=== PATIENT | female | born 1945 | race Caucasian/White ===

== ENCOUNTER 2018-10-08 13:21 | Emergency (ER) | payer MEDICARE, OTHER ==
[~2018-10-08] VITALS: Ht 162.6 cm; Wt 74.4 kg
[~2018-10-08 13:21] MED LIST: ASPIR 8181 MG PO; CALCIUM +D3 PO; CO Q-10 PO; ESTRATEST PO; MULTI-VITAMIN1 EACH PO; OCUVITE TABLET1 EAC1 PO; RESTASIS1 EACH TOP; SIMVASTATIN PO; TERBINAFINE HC250 MG PO; VITAMIN B-COMPLEX PO; VITAMIN C PO; VITAMIN D3 PO
--- OUTSIDE RECORDS SUMMARY | 2018-10-08 13:57 | XMS REPORT | Summary of Care ---
Author Author Romy Cardona Unknown Address [place] [facility] Phone Unavailable Care Team Providers Care Quality Assurance Supervisor Trim Name Role Phone KAYLIE CRUZ N.P. Unavailable Unavailable Valeri Avendaño M.A. Unavailable Unavailable KARINE RYAN [place], ZAHRA Arango Unavailable Unavailable KARINE Cheng, ZAHRA Redd Unavailable Unavailable Unavailable Functional Status Name Dates Details Functional status health issues are not documented Status: Name Dates Details Cognitive status health issues are not documented Status: Problems Name Dates Details Laceration Of Head (873.8) Status: Active A Fall Due To Slipping, Tripping, Or Stumbling (E885.9) Status: Active Neck pain (723.1, M54.2) Status: Active Joint pain, hip (719.45, M25.559) Status: Active Abnormal findings on diagnostic imaging of breast (793.89, R92.8) Status: Active Increased urinary frequency (788.41, R35.0) Status: Active Postmenopausal symptoms (627.9, N95.9) Status: Active Numbness (782.0, R20.0) Status: Active Cyst of skin (706.2, L72.9) Status: Active Elevated TSH (794.5, R79.89) Status: Active Hot flashes, menopausal (627.2, N95.1) Status: Active 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, M81.0) Status: Active 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, M51.16) Status: Active Vitamin D insufficiency (268.9, E55.9) Status: Active 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, M47.812) Status: Active Refused influenza vaccine (V64.06, Z28.21) Status: Active Varicose veins of lower extremity (454.9, I83.90) Status: Active Need for pneumococcal vaccination (V03.82, Z23) Status: Active Advanced care planning/counseling discussion (V65.49, Z71.89) Status: Active Financial difficulties (V60.2, Z59.8) Status: Active S/P foot surgery, left (V45.89, Z98.890) Status: Active Subclinical hypothyroidism (244.8, E03.9) Status: Active Postmenopausal atrophic vaginitis (627.3, N95.2) Status: Active Encounter for Medicare annual wellness exam (V70.0, Z00.00) Status: Active Hyperlipidemia (272.4, E78.5) Status: Active Breast cancer screening (V76.10, Z12.31) Status: Active Flu vaccine need (V04.81, Z23) Status: Active Herpes zoster (053.9, B02.9) Status: Active Cervical radiculopathy due to degenerative joint disease of spine (721.0, M47.22) Status: Active Medications Name Dates Details Simvastatin 40 MG Oral Tablet TAKE 1 TABLET BY MOUTH ONCE DAILY Quantity: 90 KAYLIE CRUZ N.P. * Start : 21-Jun-2013 Active Vitamin D3 1000 UNIT Oral Capsule TAKE 5 CAPSULES DAILY * Refills: 0 Active Restasis 0.05 % Ophthalmic Emulsion INSTILL 1 DROP IN EACH EYE TWICE DAILY. * Refills: 0 Active Calcium 600-200 MG-UNIT Oral Tablet TAKE 1 TABLET DAILY * Refills: 0 Active Biotin TABS 10,000MCG ONCE DAILY * Refills: 0 Active Vitamin C TABS TAKE 1 TABLET DAILY * Refills: 0 Active Vitamin B Complex CAPS TAKE 1 CAPSULE DAILY. * Refills: 0 Active Ocuvite TABS TAKE 1 TABLET DAILY. * Refills: 0 Active CoQ-10 CAPS TAKE 1 CAPSULE DAILY * Refills: 0 Active LamISIL 250 MG TABS TAKE 1 TABLET DAILY.- DR. LIANG * Quantity: 30 Refills: 0 Active Estroven TABS OTC- TAKE 1 DAILY * Refills: 0 Active valACYclovir HCl - 1 GM Oral Tablet TAKE 1 TABLET EVERY 12 HOURS. * Quantity: 20 Refills: 0 KAYLIE CRUZ N.P. * Start : 04-Jun-2018 Active Betamethasone Valerate 0.1 % External Cream APPLY SPARINGLY TO AFFECTED AREA(S) TWICE DAILY * Quantity: 1 Refills: 0 KAYLIE CRUZ N.P. * Start : 04-Jun-2018 Active 15 GM Tube Gabapentin 100 MG Oral Capsule TAKE 1 CAPSULE 3 TIMES DAILY. * Quantity: 45 Refills: 0 NANCY N.PAliyah, KAYLIE * Start : 14-Jul-2018 Active Allergies and Adverse Reactions Name Dates Details predniSONE TABS (Adverse Event) Reaction: Other Status: Active Past Medical History Name Dates Details History of Chronic Constipation (Symptom) (564.00) Status: Resolved History of Elevated TSH (794.5, R79.89) Status: Resolved History of Encounter for routine gynecological examination (V72.31, Z01.419) Status: Resolved History of esophageal reflux (V12.79, Z87.19) Status: Resolved History of Facial pain (784.0, R51) Status: Resolved History of Osteoarthritis (V13.4) Status: Resolved History of pharyngitis (V12.69, Z87.09) Status: Resolved History of senile atrophic vaginitis (V13.29, Z87.42) Status: Resolved History of Upper respiratory infection, acute (465.9, J06.9) Status: Resolved Procedures Procedure Dates Details History of Hysterectomy Completed History of Oophorectomy Completed History of Cholecystectomy Completed History of Complete Colonoscopy Completed History of Rotator Cuff Repair Completed History of Revision Of Total Knee Arthroplasty Completed History of Neuroplasty Decompression Median Nerve At Carpal Tunnel Completed 22-Jan-2016 History of Cervical Vertebral Fusion Completed 23-Mar-2015 History of Hallux Valgus (Bunion) Correction Completed Comments: Completed: Approx Immunization Name Dates Details Prevnar 13 Intramuscular Suspension Lot #: [id number] on: 05-Oct-2015 Pneumovax 23 25 MCG/0.5ML Injection Injectable Lot #: [id number] on: 03-Apr-2017 Fluzone High-Dose 0.5 ML Intramuscular Suspension Prefilled Syringe Lot #: [id number] on: 22-Apr-2018 Family History Name Dates Details Family history of Diabetes Mellitus (V18.0) Status: Active Name Dates Details Family history of CABG Status: Active Social History Name Dates Details - Status: Name Dates Details Never smoker Vital Signs Date Test Result Details [id number] BP Systolic 121 mm[Hg] Status: Comments: Location: LUE; Position: Sitting BP Diastolic 78 mm[Hg] Status: Comments: Location: LUE; Position: Sitting Height 64 in Status: Body Mass Index Calculated 29.01 kg/m2 Status: Body Surface Area Calculated 1.82 m2 Status: Weight 169 lb Status: Temperature 97.6 f Status: Comments: Method: Temporal Respiration Rate 16 /min Status: Heart Rate 75 /min Status: [id number] Height 64 in Status: Body Mass Index Calculated 29.01 kg/m2 Status: Body Surface Area Calculated 1.82 m2 Status: Weight 169 lb Status: Temperature 97.6 f Status: Comments: Method: Temporal Respiration Rate 16 /min Status: Results Date Description Value Details [id number] MRI Spine cervical wo contrast [id number] Spine cervical wo contrast MRI SEE NOTES Comments: Spine cervical wo contrast MRI , 08/07/2018 10:49 GEOLOGICAL DRAFTER.CLINICAL INDICATION:73 years Female - M47.22 Other spondylosis with radiculopathy, cervicalregion .Comparison: December 18, 2015.TECHNIQUE: Sagittal T1 and T2 weighted images were followed by axialT2- weighted views of the cervical spine without IV contrast.FINDINGS:The cervical cord is normal in size and signal intensity. There is no syrinx.The cerebellar tonsils are normal in position above the level of the foramenmagnum.C3-C6 ACDF is noted with probable bony fusion and intact anterior hardware.Metallic artifact limits evaluation, without evidence of paravertebral fluidcollection or vocal paralysis. The vertebrae are otherwise normal in shape,signal intensity and alignment.Craniocervical junction and c1-c2: No canal or foraminal stenosisC2-C3: Disc is desiccated with preserved disc height. Facet hypertrophy resultsin mild bilateral neural foraminal narrowing. No significant discbulge/herniation or canal stenosis.C3-C4: Mildly limited by metallic artifact. Midline to right paracentralresidual disc osteophyte complex measures 4 mm with [id number] canalstenosis contacting the right anterior cord. No neural foraminal narrowing.C4-C5: Mildly limited by metallic artifact. Midline to right paracentralresidual disc osteophyte complex measures 3 mm with mild canal stenosiscontacting the right anterior cord. No neural foraminal narrowing. C5-C6: Limited by metallic artifact. Midline disc osteophyte complex measuring4 mm, resulting in mild canal stenosis with contact to the anterior cord. Facethypertrophy with mild left neural foraminal narrowing.C6-C7: Disc is desiccated with mild disc height loss. 3 mm disc bulge/discosteophyte complexes and uncovertebral hypertrophy result in moderate bilateralneural foraminal narrowing, including deformity of bilateral C7 nerve root. Nofocal disc herniation or significant canal stenosis.C7-T1: There is preservation of the disc height, with no bulging, herniation,spinal stenosis, or neural foraminal stenosisIMPRESSION: Grossly stable exam including: C3-C6 ACDF with residual mild canalstenosis related to disc osteophyte complexes contacting the cord. Multilevelforaminal narrowing with deformity of bilateral C7 nerve roots.--Read by: Adams Brown MDDictated Date/time: 08/07/18 12:57Electronically Signed by: Adams Brown MD 08/07/1912:08FINAL REPORT Plan of Care Name Dates Details Planned Observations Planned Goals not documented Interventions Provided Follow-ups/Referrals* Neurosurgery Referral; To Be Done: 11 Aug 2018 Instructions Name Dates Details Instructions not documented Encounters Appointment; KAYLIE CRUZ NP Encounter Diagnosis: Problem not documented On: 02-Oct-2016 9:30 Appointment; KAYLIE CRUZ NP Encounter Diagnosis: Problem not documented On: 03-Apr-2017 10:00 Appointment; BAILEE CARROLL M.D. Encounter Diagnosis: Problem not documented On: 22-Apr-2017 10:45 Appointment; [facility], [facility] Encounter Diagnosis: Problem not documented On: 07-May-2017 9:30 Appointment; BAILEE CARROLL M.D. Encounter Diagnosis: Problem not documented On: 30-May-2017 10:00 Appointment; KAYLIE CRUZ NP Encounter Diagnosis: Problem not documented On: 22-Oct-2017 10:00 Appointment; KAYLIE CRUZ NP Encounter Diagnosis: Problem not documented On: 03-Apr-2018 9:30 Appointment; KAYLIE CRUZ NP Encounter Diagnosis: Problem not documented On: 22-Apr-2018 8:30 Appointment; KAYLIE CRUZ NP Encounter Diagnosis: Problem not documented On: 04-Jun-2018 13:00 Appointment; KAYLIE CRUZ NP Encounter Diagnosis: Problem not documented On: 14-Jul-2018 10:45
--- OUTSIDE RECORDS SUMMARY | 2018-10-08 13:57 | XMS REPORT | Summary of Care ---
Author Author [facility] [place] Organization [facility] [place] Address Unknown Phone Unavailable Encounter HQ Encntr_alizak(FIN) [id number] Date(s): 05/22/15 - 05/22/15 [facility] [place] [address], [place] [address] [phone] Discharge Disposition: Home Attending Physician: Naman Butt MD Vital Signs No data available for this section Problem List No data available for this section Allergies, Adverse Reactions, Alerts No data available for this section Medications No data available for this section Results No data available for this section Immunizations No data available for this section Procedures No data available for this section Social History No data available for this section Assessment and Plan No data available for this section
--- OUTSIDE RECORDS SUMMARY | 2018-10-08 13:57 | XMS REPORT | Summary of Care ---
Author Author [facility] [place] Organization [facility] [place] Address Unknown Phone Unavailable Encounter HQ Encntr_alias(FIN) [id number] Date(s): 03/31/15 - 03/31/15 [facility] [place] [address] [place], [place] [address] [phone] Discharge Disposition: Home Attending Physician: Bhanu Camejo MD Vital Signs No data available for [...]
--- OUTSIDE RECORDS SUMMARY | 2018-10-08 13:57 | XMS REPORT | Continuity of Care Document ---
Author Author Ry sushma [facility] Address Unknown Phone Unavailable Problems Problem Status Onset Date Classification Date Reported Comments Source M50.20 - OTHER CERVICAL DISC DISPLACEME Active 05/11/2015 [facility] 719.45 - JOINT PAIN-PELV Active 06/07/2013 [facility] Medications Medication Details Route Status Patient Instructions Ordering Provider Order Date Source Allergies, Adverse Reactions, Alerts Substance Category Reaction Severity Reaction type Status Date Reported Comments Source Immunizations Immunization Date Given Site Status Last Updated Comments Source Results Order Name Results Value Reference Range Date Interpretation Comments Source Spine cervical 2 or 3 view DX Spine cervical 2 or 3 view DX EXAMINATION: Cervical spine - AP, lateral neutral, lateral flexion, lateral extension HISTORY: Cervical spondylosis. FINDINGS: Frontal, lateral neutral, lateral flexion, and lateral extension views of the cervical spine are performed and compared to 06/08/2013. There has been interval instrumented anterior cervical discectomy and fusion from C3 through C6 transfixed with an anterior plate and multiple screws. There is gentle reversal of the normal cervical lordosis centered at C4 without listhesis. There is osseous central canal stenosis from C4-C5 through C5-C6. There is unchanged moderate C6-C7 and mild C7-T1 degenerative disc disease. There is overall hypomobility of the cervical spine on flexion-extension. There is mild angular excursion between C5 and C6 on flexion-extension with no definite annular excursion of the remaining instrumented levels. IMPRESSION: 1. Interval instrumented anterior cervical discectomy and fusion, C3-C6. 2. Overall hypomobility of the cervical spine on flexion-extension with mild angular excursion between C5 and C6 on flexion-extension, but no definite angular excursion of the remaining instrumented levels. 3. Unchanged moderate C6-C7 and mild C7-T1 degenerative disc disease. 4. Unchanged osseous central canal stenosis from C4-C5 through C5-C6. 05/22/2015 - - Read by: John Serrano MD Dictated Date/time: 05/22/15 10:29 Electronically Signed by: John Serrano MD 05/22/15 10:34 FINAL REPORT ANN MARIE Ashraf Spine cervical wo contrast MRI Spine cervical wo contrast MRI MRI CERVICAL SPINE WITHOUT CONTRAST TECHNIQUE: Multiplanar multisequence imaging of the cervical spine was performed without administration of intravenous gadolinium. COMPARISON: 01/09/2010 MRI exam. FINDINGS: Multilevel disc desiccation is seen. Mild cervical spine kyphosis is again seen. C2-C3: Unremarkable. C3-C4: Stable significant disc degenerative disease with 4 mm right asymmetric disc osteophyte complex with mild central canal stenosis and cord indentation. There is stable mild to moderate left foraminal stenosis and mild right foraminal stenosis. Small anterior osteophytes are also present. C4-C5: Stable moderate disc narrowing with 4.3 mm right paracentral disc retrusion and minimal grade 1 retrolisthesis. Mild to moderate central canal stenosis is slightly more prominent since 2009 with corresponding mass effect on the cervical cord. There is also progressive moderate to severe bilateral foraminal stenosis. C5-C6: Stable 4.2 mm right asymmetric disc osteophyte complex with mild to moderate central canal stenosis and mass effect on the cervical cord. Stable moderate bilateral foraminal stenosis. C6-C7: Stable disc desiccation with 2.8 mm posterior disc osteophyte complex with mild central canal stenosis. There is stable mild to moderate bilateral foraminal stenosis. C7-T1: Unremarkable. The cervical cord signal is unremarkable without MRI evidence of myelomalacia. IMPRESSION: 1. Multilevel disc degenerative disease and spondylosis. 2. Mildly more prominent C4-C5 mild to moderate central canal stenosis since 2009 and progressive moderate to severe bilateral foraminal stenosis. 3. Otherwise stable significant degenerative changes at C3-C4, C5-C6, and C6-C7 levels with multilevel mild to moderate central canal stenosis and cord indentation. No MRI evidence of cervical cord myelomalacia. 4. Multilevel mild to moderate foraminal stenosis. 03/31/2015 - - Read by: Jameel Fisher MD Dictated Date/time: 03/31/15 14:11 Electronically Signed by: Jameel Fisher MD 03/31/15 14:20 FINAL REPORT ANN MARIE Ashraf Spine lumbar wo contrast MRI Spine lumbar wo contrast MRI MRI LUMBAR SPINE WITHOUT CONTRAST COMPARISON: 01/09/2010 MRI exam. TECHNIQUE: Sagittal T1, sagittal T2 with fat saturation, axial T1 and axial T2 images were obtained. No intravenous gadolinium was given. FINDINGS: The paravertebral soft tissues are normal. The conus medullaris terminates at the L2 level. Moderate dextrocurvature of the lumbar spine is stable. T12-L1: Unremarkable. L1-L2: Disc desiccation is present with mild disc bulge. No significant central canal or foraminal stenosis. L2-L3: Progressive moderate to significant disc narrowing is seen since 2009, with right asymmetric disc osteophyte complex measuring approximately 4 mm, with moderate right lateral recess stenosis and mild mass effect on the right L3 descending nerve root. Mild central canal stenosis is again seen. There is moderate right foraminal stenosis. Left foraminal annular fissure is seen without foraminal stenosis. L3-L4: Stable moderate disc narrowing is present with increased prominence of the right asymmetric disc bulge measuring 4 mm with mild mass effect on the right L4 descending nerve root. Progressive mild to moderate central canal stenosis is seen since 2010. There is mild right foraminal stenosis. L4-L5: Stable mild disc bulge. There is slightly more prominent ligamenta flava redundancy with mild central canal stenosis. There is stable mild left foraminal stenosis. L5-S1: Stable mild disc bulge measuring 1.8 mm with posterior annular fissure. No central canal stenosis. Stable mild left foraminal stenosis due to disc osteophyte complex. IMPRESSION: 1. Multilevel disc degenerative disease and spondylosis. Stable moderate dextrocurvature. 2. Progressive L2-L3 degenerative changes with moderate right lateral recess stenosis and mild central canal stenosis, moderate right foraminal stenosis. Mild mass effect on the right L3 descending nerve root present. 3. Increased L3-L4 disc bulge with mild mass effect on right L4 descending nerve root and mild to moderate central canal stenosis compared to 2010. 4. More prominent L4-L5 ligamenta flava redundancy with mild central canal stenosis. 5. Other findings are stable as above. 03/31/2015 - - Read by: Jameel Fisher MD Dictated Date/time: 03/31/15 12:35 Electronically Signed by: Jameel Fisher MD 03/31/15 13:34 FINAL REPORT ANN MARIE Page Spine cervical 2 or 3 views Spine cervical 2 or 3 views CERVICAL SPINE SERIES CLINICAL HISTORY: Neck pain. COMPARISON IMAGING: None. FINDINGS: Three views of the cervical spine were obtained. There is stable reversal of normal cerebral lordosis, centered at C3. Moderate to severe multilevel degenerative changes are also unchanged, including loss of disc height, anterior osteophytes, posterior osteophytes, facet hypertrophy, and uncovertebral joint hypertrophy. Multiple neural foramina are likely narrowed. Vertebral body heights and alignment are otherwise maintained. No obvious fracture or subluxation is identified. Prevertebral soft tissues are unremarkable. IMPRESSION: Moderate to severe multilevel degenerative changes. 06/08/2013 - - Read by: Thong Morrison Dictated Date/time: 06/08/13 11:11 Electronically Signed by: Thong Morrison MD 06/08/13 11:12 FINAL REPORT ANN MARIE Ashraf Hip min 2 views Hip min 2 views LEFT HIP SERIES CLINICAL HISTORY: Hip pain. COMPARISON IMAGING: None. FINDINGS: Two views were submitted for evaluation. There is loss of joint space without other significant generative changes. This suggests mild osteoarthritis. No fracture, dislocation, or radiopaque foreign body is seen. Soft tissues are unremarkable. IMPRESSION: Loss of joint space suggesting mild osteoarthritis. 06/08/2013 - - Read by: Thong Morrison Dictated Date/time: 06/08/13 11:10 Electronically Signed by: Thong Morrison MD 06/08/13 11:11 FINAL REPORT ANN MARIE Ashraf Vital Signs Vital Sign Value Date Comments Source Encounters Location Location Details Encounter Type Encounter Number Reason For Visit Attending Provider ADM Date DC Date Status Source OD [id number] 719.45 - JOINT PAIN-PELV KAYLIE CRUZ 06/08/2013 Active [facility] [id number] Bhanu Camejo 03/31/2015 04/01/2015 [facility] [id number] Naman Butt 05/22/2015 05/23/2015 ANN MARIE Carrascoadena Procedures Procedure Code Date Perfomer Comments Source
[2018-10-08] MEDS ORDERED: SODIUM CHLORIDE 0.9% 1000ML 1,000 ML IV STA (14:02)
[2018-10-08] MEDS ORDERED: ONDANSETRON HCL INJ 2MG/ML 2ML 2 MG/ML VIAL IV NR (14:02)
[2018-10-08 14:26] LABS: BASOPHILS % 0.6 % (0.0-1.0); EOSINOPHILS # (AUTO) 0.4 (0.0-0.4); EOSINOPHILS % 5.5 % (0.0-6.0); HEMATOCRIT 44.2 % (34.2-44.1); HEMOGLOBIN 14.8 g/dL (12.0-16.0); LYMPHOCYTES % 32.1 % (18.0-39.1); MEAN CORPUSCULAR HEMOGLOBIN 29.4 pg (28-32); MEAN CORPUSCULAR HGB CONC 33.5 g/dL (31-35); MEAN CORPUSCULAR VOLUME 87.9 fL (81-99); MONOCYTES # (AUTO) 0.4 (0.2-0.8); MONOCYTES % 6.8 % (4.4-11.3); NEUTROPHILS # (AUTO) 3.5 (2.1-6.9); NEUTROPHILS % 54.8 % (38.7-80.0); PLATELET COUNT 214 x10e3/uL (140-360); RED BLOOD COUNT 5.03 x10e6/uL (3.6-5.1); RED CELL DISTRIBUTION WIDTH 12.9 % (11.7-14.4)
[2018-10-08 14:35] LABS: CLARITY,URINE SL CLOUDY (CLEAR); COLOR,URINE YELLOW (YELLOW)
[2018-10-08 14:36] LABS: BILIRUBIN,URINE NEGATIVE (NEGATIVE); KETONES,URINE NEGATIVE (NEGATIVE); LEUKOCYTE ESTERASE ,URINE TRACE (NEGATIVE); NITRITE,URINE NEGATIVE (NEGATIVE); PROTEIN,URINE DIPSTICK NEGATIVE (NEGATIVE); URINE UROBILINOGEN 0.2 mg/dL (0.2 - 1)
[2018-10-08 14:37] LABS: INR 0.86; PROTHROMBIN TIME 12.2 seconds (11.9-14.5)
[2018-10-08 14:38] LABS: PARTIAL THROMBOPLASTIN TIME 35.3 seconds (23.8-35.5)
[2018-10-08 14:42] LABS: BACTERIA,URINE MANY /HPF; EPITHELIAL CELLS,URINE MODERATE /LPF
[2018-10-08 14:48] LABS: ALANINE AMINOTRANSFERASE 19 IU/L (0-55); ALBUMIN 3.8 g/dL (3.5-5.0); ALKALINE PHOSPHATASE 69 IU/L (40-150); BLOOD UREA NITROGEN 12 mg/dL (7-26); BUN/CREATININE RATIO 17 (6-25); CALCIUM 9.7 mg/dL (8.4-10.2); CARBON DIOXIDE 26 mmol/L (22-29); CHLORIDE 104 mmol/L (98-107); CREATINE KINASE 56 IU/L (29-168); CREATININE, SERUM 0.71 mg/dL (0.57-1.11); EST GLOMERULAR FILTRATION RATE > 60 ML/MIN (60-); GLUCOSE 94 mg/dL (74-118); MAGNESIUM 2.1 MG/DL (1.3-2.1); SODIUM 139 mmol/L (136-145)
[2018-10-08 15:35] LABS: AMYLASE 36 U/L (25-125); LIPASE 9 U/L (8-78)
[2018-10-08] MEDS ORDERED: IOPAMIDOL 370 MG/ML 200 ML INFUS..BTL INJ ONE (15:41)
[2018-10-08] MEDS ORDERED: SODIUM CHLORIDE 0.9% 50ML 50 ML ONE (15:41)
--- NOTE | 2018-10-08 17:34 | Diagnostic Imaging Report ---
EXAMINATION: CT of the abdomen and pelvis with contrast. TECHNIQUE: Helical CT images of the abdomen and pelvis were performed from the lung bases to the lesser trochanters after the intravenous administration of 100 cc of Isovue 300 and the oral administration of none. Coronal and sagittal reformatted images were obtained.Dose modulation, iterative reconstruction, and/or weight based adjustment of the mA/kV was utilized to reduce the radiation dose to as low as reasonably achievable. COMPARISON: None. CLINICAL HISTORY:Abdominal pain DISCUSSION: ABDOMEN/PELVIS: LOWER THORAX:Unremarkable. HEPATOBILIARY: No focal hepatic lesions. No intra-or extrahepatic biliary ductal dilation. Cholecystectomy. SPLEEN: No splenomegaly. PANCREAS: No focal masses or ductal dilatation. ADRENALS: No adrenal nodules. KIDNEYS/URETERS: No hydronephrosis, stones, or solid mass lesions. PELVIC ORGANS/BLADDER: The bladder is normal. Hysterectomy. PERITONEUM/RETROPERITONEUM: No free air or fluid. LYMPH NODES: No intra-abdominal, retroperitoneal, pelvic or inguinal lymphadenopathy. VESSELS: The celiac trunk,superior and inferior mesenteric and bilateral renal arteries are patent The portal, superior mesenteric and splenic veins are patent. GI TRACT: No distention or wall thickening. The appendix is normal. BONES AND SOFT TISSUE: No bony destructive lesions. Multilevel lumbar degenerative disc disease most prominent at L2-L3. IMPRESSION: No acute CT finding. Signed by: Dr. Son Quintanilla M.D. on 10/08/2018 5:31 PM
[2018-10-08] MEDS ORDERED: CEFDINIR300 MG PO (18:14)
[2018-10-08 18:22] VITALS: BP 132/74
== END 2018-10-08 18:24 | disposition home or self-care (01) ==
LOC: ER 13:21
DX: R10.31 Right lower quadrant pain (principal); R11.2 Nausea with vomiting, unspecified; N30.90 Cystitis, unspecified without hematuria
CPT/HCPCS: 36415; 74177; 80053; 81001; 82150; 82550; 82553; 83690; 83735; 84484; 85025; 85610; 85730; 99284; J7030; Q9967

== ENCOUNTER → 2021-10-31 | Outpatient (CLI) | payer MEDICARE, OTHER ==
[~2021-10-31] MED LIST changes: +CEFDINIR300 MG PO
== END ==
LOC: DX 08:41
PROVIDERS: ATTEND Internal Medicine Gastroenterology
DX: K29.00 Acute gastritis without bleeding (principal); Z20.822 Contact with and (suspected) exposure to COVID-19
CPT/HCPCS: 74220; U0002

== ENCOUNTER → 2022-12-03 | Outpatient (CLI) | payer MEDICARE, OTHER | LOC: NM 08:43 | PROVIDERS: ATTEND Internal Medicine Gastroenterology | DX: R13.10 Dysphagia, unspecified (principal); K22.4 Dyskinesia of esophagus | CPT/HCPCS: 78264; A9541 ==